=== PATIENT | male | born 1945 | race Caucasian/White ===

== ENCOUNTER 2018-03-23 15:13 | Emergency (ER) | payer OTHER ==
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
[2018-03-23 16:12] VITALS: BP 162/108
== END 2018-03-23 16:11 | disposition home or self-care (01) ==
LOC: EDUNIT#
DX: M54.2 Cervicalgia (principal); V49.19XA Passenger injured in collision with other motor vehicles in nontraffic accident, initial encounter; Y92.9 Unspecified place or not applicable; Y93.9 Activity, unspecified; Y99.9 Unspecified external cause status